=== PATIENT | female | born 1980 | race Caucasian/White ===

== ENCOUNTER → 2017-07-08 | Outpatient (CLI) | payer MEDICAID ==
--- NOTE | 2017-07-08 12:07 | Diagnostic Imaging Report ---
PROCEDURE: MRI left joint lower extremity without contrast. TECHNIQUE: Multiplanar, multisequence non contrast-enhanced MRI of the left lower extremity was accomplished. INDICATION: Knee pain. COMPARISON: There are no previous studies available for comparison. FINDINGS: By history, patient has had two prior procedures for repair of a meniscus tear. On the proton dense parasagittal images of this exam, there is abnormal signal along the inferior articular surface of the posterior horn of the medial meniscus. This does suggest a tear. The midportion of the meniscus is also thinned and I suspect that this portion of the meniscus has been torn and has degenerated. The injury to the medial meniscus has lead to moderate degenerative disease of the articular surface of both medial femoral condyle and medial proximal tibia. There is no evidence for a tear of the lateral meniscus. There is only mild degenerative disease of the articular surface of the lateral femoral condyle. The anterior and posterior cruciate ligaments, quadriceps and infrapatellar tendons, the collateral ligaments, the biceps femoris tendon, the iliotibial band and the medial and lateral retinaculum are intact. There is no abnormal signal arising from the osseous structures to suggest bone edema or fracture. There is a moderate joint effusion present. The T2 fat-saturated axial images do show that there is some increased signal extending along the musculature of the upper calf medially. This increased signal may be related to fluid perhaps from the recent rupture of a Rahman's cyst with extravasation of the cyst contents into the musculature. T2 fat saturated axial images also show that there is narrowing of the patellofemoral space laterally. There is no sign of chondromalacia patella however. IMPRESSION: 1. The midportion and the posterior horn of the medial meniscus are torn and the midportion of the meniscus has partially degenerated. The injury to the medial meniscus has lead to moderate degenerative disease involving the articular surface of the medial femoral condyle. 2. The lateral meniscus and the major ligaments and tendons are intact. 3. There is mild degenerative disease of the lateral femoral condyle and there is narrowing of the lateral aspect of the patellofemoral space. 4. There is no sign of an acute bony abnormality. 5. The abnormal signal along the musculature in the medial aspect of the upper calf may be secondary to extravasated fluid from a ruptured Rahman's cyst. There does seem to be mild edema/inflammation of the musculature in this area. Dictated by: Dictated on workstation # [id number]
== END ==
LOC: RAD 09:11
PROVIDERS: ATTEND Orthopaedic Surgery
DX: M23.232 Derangement of other medial meniscus due to old tear or injury, left knee (principal)
CPT/HCPCS: 73721

== ENCOUNTER → 2017-08-13 | Outpatient (CLI) | payer MEDICAID ==
[~2017-08-13] MED LIST: GADOBUTROL 15 MMOL/15 ML (GADAVIST) VIAL IV ONE
--- NOTE | 2017-08-13 15:34 | Diagnostic Imaging Report ---
PROCEDURE: MRI pelvis with and without contrast. TECHNIQUE: Multiplanar, multisequence MRI of the pelvis was performed with and without contrast. INDICATION: Abnormal radiographs. Evaluate for sacroiliitis and bone marrow edema. FINDINGS: The sacroiliac joints demonstrate normal alignment. There is overall, in the visualized portions of the lower lumbar spine and in the sacrum, low fat content in the marrow. This could relate to a hyperactive bone marrow or less likely hematologic disease. There is no focal suspicious mass. There is no significant bone marrow edema or enhancement around the joints to suggest sacroiliitis. No significant amount of joint fluid is seen. No suspicious focal mass is identified. No enhancing lesion is seen within the bone or surrounding soft tissues in the presacral region or visualized portions of the pituitary region. The sacrococcygeal alignment is satisfactory. No stress fracture is seen. IMPRESSION: 1. No evidence of sacroiliitis. 2. Diffuse low signal in the marrow within the sacrum and visualized lower lumbar spine could relate to prominent red marrow component or potentially related to a hematologic disorder. No focal suspicious marrow lesion is seen. Dictated by: Dictated on workstation # [id number]
== END ==
LOC: RAD 09:22
PROVIDERS: ATTEND Internal Medicine Rheumatology
DX: M89.9 Disorder of bone, unspecified (principal)
CPT/HCPCS: 72197

== ENCOUNTER → 2017-09-06 | Outpatient (CLI) | payer MEDICAID | LOC: RAD 09:30 | PROVIDERS: ATTEND Orthopaedic Surgery | DX: S83.242A Other tear of medial meniscus, current injury, left knee, initial encounter (principal); X58.XXXA Exposure to other specified factors, initial encounter; Y99.8 Other external cause status ==

== ENCOUNTER → 2017-09-10 | Outpatient (CLI) | payer MEDICAID ==
--- NOTE | 2017-09-10 12:06 | Diagnostic Imaging Report ---
PROCEDURE: MRI left joint lower extremity without contrast. TECHNIQUE: Multiplanar, multisequence non contrast-enhanced MRI of the left lower extremity was accomplished. INDICATION: Left knee injury. FINDINGS: There is a small suprapatellar effusion. There is a very small popliteal cyst measuring 8 x 3 mm in size. There is no significant marrow signal abnormality. The extensor mechanism is intact. The ACL and PCL appear intact. There is a tear involving the posterior horn of the medial meniscus and a radial tear in the body of the medial meniscus. The anterior horn is intact. The lateral meniscus demonstrates no definite tear. There is mild thinning of the cartilage in the medial compartment. The lateral and patellofemoral compartments cartilage is preserved. The lateral collateral ligament complex appears intact. The MCL appears slightly thickened probably secondary to old injury. IMPRESSION: Focal tears involving the posterior horn and the body of the medial meniscus. Dictated by: Dictated on workstation # [id number]
== END ==
LOC: RAD 09:39
PROVIDERS: ATTEND Orthopaedic Surgery
DX: S83.242A Other tear of medial meniscus, current injury, left knee, initial encounter (principal); X58.XXXA Exposure to other specified factors, initial encounter; Y99.8 Other external cause status
CPT/HCPCS: 73721

== ENCOUNTER 2017-10-31 14:03 | Outpatient (RCR) | payer MEDICAID ==
[2018-01-16] MEDS ORDERED: FLUT1DIS26 (10:49)
[2018-01-16] MEDS ORDERED: HYDR50TA76 (10:49)
[2018-01-16] MEDS ORDERED: TIZA4TAB3 (10:49)
[2018-01-16] MEDS ORDERED: HYDR200T46 (10:49)
[2018-01-16] MEDS ORDERED: BACL10TA (10:49)
[2018-01-16] MEDS ORDERED: METO-333 (10:49)
[2018-01-16] MEDS ORDERED: PROAIR (10:49)
[2018-01-16] MEDS ORDERED: OXYC-465 (10:49)
[2018-01-16] MEDS ORDERED: DICL100G27 (10:49)
[2018-01-16] MEDS ORDERED: CELE-63 (10:49)
== END 2018-01-29 | disposition home or self-care (01) ==
LOC: CARD 14:03
PROVIDERS: ATTEND Nurse Practitioner Family
DX: R00.0 Tachycardia, unspecified (principal)
CPT/HCPCS: 93225; 93226

== ENCOUNTER → 2017-12-24 | Outpatient (CLI) | payer MEDICAID | LOC: CARD 12:34 | PROVIDERS: ATTEND Internal Medicine Cardiovascular Disease | DX: R00.2 Palpitations (principal); R06.02 Shortness of breath; E66.8 Other obesity; M35.1 Other overlap syndromes; J30.2 Other seasonal allergic rhinitis | CPT/HCPCS: 93017; 93306 ==

== ENCOUNTER 2018-01-16 09:44 | Emergency (ER) | payer MEDICAID ==
[~2018-01-16] VITALS: Ht 172.7 cm; Wt 119.7 kg
--- OUTSIDE RECORDS SUMMARY | 2018-01-16 09:52 | XMS REPORT | Continuity of Care Document ---
Author Author [employer] Organization [facility] Address Unknown Phone Unavailable Care Team Providers Care Concrete Crusher Loader Operator Name Role Phone [employer] Unavailable Unavailable Problems Medications Allergies, Adverse Reactions, Alerts Immunizations Results Vital Signs Encounters Location Location Details Encounter Type Encounter Number Reason For Visit Attending Provider ADM Date DC Date Status Source O [id number] CIARA GREGORY 08/28/2011 08/28/2011 Active [facility] OUTPATIENT [id number] IDRIS COTE 01/01/20182017 Active [facility] O MARY GUERRERO 01/15/2018 01/15/2018 Active [facility] Procedures Plan of Care Social History Assessment and Plan Family History Advance Directives Functional Status
--- OUTSIDE RECORDS SUMMARY | 2018-01-16 09:52 | XMS REPORT | Clinical Summary ---
Author Author [facility] Organization [facility] Address Unknown Phone Unavailable Care Team Providers Care Obstetrical Anesthesiologist Name Role Phone RachaelNavarro VONDA PCP Source Comments Some departments are not documenting in the electronic medical record. If you do not see the information that you expected, contact Release of Information in the Health Information Management department at [phone] for further assistance in locating additional records.[facility] Allergies Active Allergy Reactions Severity Noted Date Comments Amoxicillin HIVES Medium 01/01/2018 Penicillins HIVES Medium 01/01/2018 Current Medications Prescription Sig. Disp. Refills Start End Date Status Date fluticasone/salmeterol Inhale 1 puff by mouth Active (ADVAIR DISKUS) 250/50 into the lungs every 12 mcg inhalation disk hours. albuterol (VENTOLIN HFA) Inhale 2 puffs by mouth Active 90 mcg/actuation inhaler into the lungs every 6 hours as needed for Wheezing or Shortness of Breath. Shake well before use. fluticasone (FLONASE) 50 Apply to each nostril as Active mcg/actuation nasal spray directed daily. Shake bottle gently before using. cetirizine (ZYRTEC) 10 mg Take 10 mg by mouth every Active tablet morning. omeprazole DR(+) Take 20 mg by mouth daily Active (PRILOSEC) 20 mg capsule before breakfast. HYDROXYZINE HCL PO Take 50 mg by mouth twice Active daily. baclofen (LIORESAL) 10 mg Take 10 mg by mouth three Active tablet times daily. metoprolol XL (TOPROL XL) Take 25 mg by mouth twice Active 25 mg extended release daily. tablet other medication HYDROXYCYCLINE 200 MG BID Active TIZANIDINE HCL Take by mouth three Active (TIZANIDINE PO) times daily. celecoxib (CELEBREX) 400 Take 400 mg by mouth Active mg capsule twice daily. oxycodone/acetaminophen Take by mouth every 6 Active (PERCOCET) 10/325 mg hours as needed. tablet diclofenac(+) (VOLTAREN) Apply 4 g topically to Active 1 % topical gel affected area daily. Hospital, Clinic, or Ordered Dose Route Frequency Start End Date Status Other Facility Date Administered Medication sodium 20 mg IX ONCE 01/15/20 01/16/20 Active hyaluronate(+)(EUFLEXXA) 18 18 intra-articular injection syringe 20 mgIndications: Post-traumatic osteoarthritis of left knee sodium 20 mg IX ONCE 01/01/20 01/02/20 Ended hyaluronate(+)(EUFLEXXA) 18 18 intra-articular injection syringe 20 mgIndications: Post-traumatic osteoarthritis of left knee sodium 20 mg IX ONCE 01/08/20 01/09/20 Ended hyaluronate(+)(EUFLEXXA) 18 18 intra-articular injection syringe 20 mgIndications: Post-traumatic osteoarthritis of left knee Active Problems Problem Noted Date Post-traumatic osteoarthritis of left knee 01/01/2018 Patellofemoral pain syndrome of left knee 01/01/2018 Encounters Date Type Specialty Care Team Description 01/15/2018 Procedure visit Orthopedic Surgery Jacky Duvall PA-C Post-traumatic osteoarthritis of left knee (Primary Dx) 01/08/2018 Procedure visit Orthopedic Surgery Jacky Duvall PA-C Post-traumatic osteoarthritis of left knee (Primary Dx) 01/01/2018 Hospital Radiology Jacky Duvall PA-C Encounter 01/01/2018 Office Visit Orthopedic Surgery Jacky Duvall PA-C Post-traumatic osteoarthritis of left knee (Primary Dx); Patellofemoral pain syndrome of left knee 12/30/2017 Orders Only Orthopedic Surgery Jacky Duvall PA-C Pain (Primary Dx) from Last 3 Months Family History Medical History Relation Name Comments Asthma Father Hypertension Father Stroke Father Asthma Mother Diabetes Mother Hypertension Mother Relation Name Status Comments Father Mother Social History Tobacco Use Types Packs/Day Years Used Date Never Smoker Smokeless Tobacco: Never Used Tobacco Cessation: Counseling Given: Yes Alcohol Use Drinks/Week oz/Week Comments No Sex Assigned at Date Recorded Not on file Last Filed Vital Signs Vital Sign Reading Time Taken Blood Pressure 102/72 01/15/2018 10:22 AM CONTROL CLERK Pulse 101 01/15/2018 10:22 AM CONTROL CLERK Temperature - - Respiratory Rate - - Oxygen Saturation - - Inhaled Oxygen - - Concentration Weight 124.7 kg (275 lb) 01/15/2018 10:22 AM CONTROL CLERK Height 172.7 cm (5' 8") 01/15/2018 10:22 AM CONTROL CLERK Body Mass Index 41.81 01/15/2018 10:22 AM CONTROL CLERK Plan of Treatment Health Maintenance Due Date Last Done Comments PHYSICAL (COMPREHENSIVE) 1987 EXAM PERTUSSIS VACCINE 1991 TETANUS VACCINE 1997 CERVICAL CANCER SCREENING 2010 INFLUENZA VACCINE 06/25/2017 Procedures Procedure Name Priority Date/Time Associated Diagnosis Comments AR ARTHROCENTESIS Routine 01/15/2018 Post-traumatic Results for this ASPIR&/INJ MAJOR JT/BURSA 10:20 AM CONTROL CLERK osteoarthritis of left procedure are in the W/O US knee results section. AR ARTHROCENTESIS Routine 01/08/2018 Post-traumatic Results for this ASPIR&/INJ MAJOR JT/BURSA 10:20 AM CONTROL CLERK osteoarthritis of left procedure are in the W/O US knee results section. AR ARTHROCENTESIS Routine 01/01/2018 Post-traumatic Results for this ASPIR&/INJ MAJOR JT/BURSA 8:00 AM CONTROL CLERK osteoarthritis of left procedure are in the W/O US knee results section. from Last 3 Months Results * KU AMB UKP ORTHO LARGE JOINT DRAIN/INJECT (01/15/2018 10:20 AM) Specimen Performing Laboratory IN CLINIC Narrative Jacky Duvall PA-C 01/15/2018 11:07 AM Large Joint Drain/Inject Location: knee L knee Consent: Consent obtained: verbal Consent given by: patient Risks discussed: bleeding, infection, pain and soft tissue reaction Discussed with patient the purpose of the treatment/procedure, other ways of treating my condition, including no treatment/ procedure and the risks and benefits of the alternatives. Patient has decided to proceed with treatment/procedure. [place] Protocol: Patient identity confirmed: Patient identify confirmed verbally with patient. Time out: Immediately prior to procedure a "time out" was called to verify the correct patient, procedure, equipment, passport support associate and site/side marked as required Procedures Details: Indications: pain and joint swelling Prep: alcohol and povidone-iodine Local anesthetic: ethyl chloride spray Needle size: 22 G Approach: anteromedial Medications administered: 20 mg sodium hyaluronate(+)(EUFLEXXA) 20 mg/2mL Patient tolerance: Patient tolerated the procedure well with no immediate complications. Pressure was applied, and hemostasis was accomplished. * KU AMB UKP ORTHO LARGE JOINT DRAIN/INJECT (01/08/2018 10:20 AM) Specimen Performing Laboratory IN CLINIC Narrative Jacky Duvall PA-C 01/08/2018 10:53 AM Large Joint Drain/Inject Location: knee L knee Consent: Consent obtained: verbal Consent given by: patient Risks discussed: bleeding, infection, pain and soft tissue reaction Discussed with patient the purpose of the treatment/procedure, other ways of treating my condition, including no treatment/ procedure and the risks and benefits of the alternatives. Patient has decided to proceed with treatment/procedure. [place] Protocol: Patient identity confirmed: Patient identify confirmed verbally with patient. Time out: Immediately prior to procedure a "time out" was called to verify the correct patient, procedure, equipment, passport support associate and site/side marked as required Procedures Details: Indications: pain and joint swelling Prep: alcohol and povidone-iodine Local anesthetic: ethyl chloride spray Needle size: 22 G Approach: anteromedial Medications administered: 20 mg sodium hyaluronate(+)(EUFLEXXA) 20 mg/2mL Patient tolerance: Patient tolerated the procedure well with no immediate complications. Pressure was applied, and hemostasis was accomplished. * KNEE COMP MIN 4 VIEWS BILAT (01/01/2018 8:31 AM) Specimen Performing Laboratory Bilateral KU RAD RESULTS Impressions Findings/Impression: Osseous structures are intact without evidence of acute fracture or dislocation. Joint spaces are preserved except for minimal joint space narrowing of the medial joint compartment of the left knee. Normal bone mineralization. No lytic or blastic osseous lesions. No significant joint effusion. Finalized by JULIETA CÁRDENAS on 01/01/2018 8:44 AM. Dictated by JULIETA CÁRDENAS on 01/01/2018 8:42 AM. Narrative KNEE COMP MIN 4 VIEWS BILAT Indication: Knee pain Comparison: None Technique: Bilateral PA, AP, lateral and merchant views Procedure Note Interface, Radiant Results - 01/01/2018 8:47 AM CONTROL CLERK KNEE COMP MIN 4 VIEWS BILAT Indication: Knee pain Comparison: None Technique: Bilateral PA, AP, lateral and merchant views IMPRESSION Findings/Impression: Osseous structures are intact without evidence of acute fracture or dislocation. Joint spaces are preserved except for minimal joint space narrowing of the medial joint compartment of the left knee. Normal bone mineralization. No lytic or blastic osseous lesions. No significant joint effusion. Finalized by JULIETA CÁRDENAS on 01/01/2018 8:44 AM. Dictated by JULIETA CÁRDENAS on 01/01/2018 8:42 AM. * KU AMB UKP ORTHO LARGE JOINT DRAIN/INJECT (01/01/2018 8:00 AM) Specimen Performing Laboratory IN CLINIC Chas Duvall PA-C 01/01/2018 12:42 PM Large Joint Drain/Inject Location: knee L knee Consent: Consent obtained: verbal Consent given by: patient Risks discussed: bleeding, infection, pain and soft tissue reaction Alternatives discussed: alternative treatment, delayed treatment and no treatment Discussed with patient the purpose of the treatment/procedure, other ways of treating my condition, including no treatment/ procedure and the risks and benefits of the alternatives. Patient has decided to proceed with treatment/procedure. [place] Protocol: Patient identity confirmed: Patient identify confirmed verbally with patient. Time out: Immediately prior to procedure a "time out" was called to verify the correct patient, procedure, equipment, passport support associate and site/side marked as required Procedures Details: Indications: pain and joint swelling Prep: alcohol and povidone-iodine Local anesthetic: ethyl chloride spray Needle size: 22 G Approach: anteromedial Medications administered: 20 mg sodium hyaluronate(+)(EUFLEXXA) 20 mg/2mL Patient tolerance: Patient tolerated the procedure well with no immediate complications. Pressure was applied, and hemostasis was accomplished. from Last 3 Months
--- OUTSIDE RECORDS SUMMARY | 2018-01-16 09:53 | XMS REPORT ---
Author MUSA Godfrey [facility] [employer] Address Unknown Phone Unavailable Care Team Providers Care Pediatric Physician Name Role Phone MUSA QUEEN CP Unavailable Allergies No Known Allergies Problems Problem Type Condition Code Onset Dates Condition Status Problem Mild intermittent asthma without complication J45.20 Active Assessment Cough R05 Active Problem Gastroesophageal reflux disease, esophagitis presence not specified K21.9 Active Medications No Known Medications Procedures Procedure Coding System Code Date CHEST X-RAY CPT-4 59701 Oct 09, 2016 Results Name Result Date Reference Range Unit Abnormality Flag Xray : Chest (IN HOUSE) Summary Purpose [employer] Submission
--- OUTSIDE RECORDS SUMMARY | 2018-01-16 09:53 | XMS REPORT ---
Author Author KRYSTYNA GERMAN Organization [employer] Address Unknown Phone Unavailable Care Team Providers Care Automotive Internet Sales Consultant Name Role Phone KRYSTYNA GERMAN Unavailable Allergies No Known Allergies Problems Problem Type Condition Code Onset Dates Condition Status Problem Mild intermittent asthma without complication J45.20 Active Problem Gastroesophageal reflux disease, esophagitis presence not specified K21.9 Active Medications No Known Medications Results No Known Results Summary Purpose [employer] Submission
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
--- OUTSIDE RECORDS SUMMARY | 2018-01-16 09:53 | XMS REPORT ---
Author Author KRYSTYNA BALL Organization [facility] Address [address] [place] [address] Care Team Providers Care Sales Research Analyst Name Role Phone KRYSTYNA BALL Unavailable PROBLEMS Type Condition ICD9-CM Code [id number] Code Onset Dates Condition Status SNOMED Code Problem Right foot strain, initial encounter S96.911A Active 732341818 Problem Difficulty sleeping G47.9 Active 467518251 Problem Mild intermittent asthma without complication J45.20 Active 634345229 Problem Anxiety F41.9 Active 84736574 Problem Gastroesophageal reflux disease, esophagitis presence not specified K21.9 Active 615258405 ALLERGIES Substance Reaction Event Type Date Status Penicillin V Potassium hives Drug Allergy Oct, Active Amoxicillin hives Drug Allergy Oct, Active SOCIAL HISTORY No smoking Hx information available PLAN OF CARE Activity Details Follow Up pending referral for second opinion Reason: VITAL SIGNS Height 68 in 2016-11-05 Weight 284 lbs 2016-11-05 Temperature 98.4 degrees Fahrenheit 2016-11-05 Heart Rate 80 bpm 2016-11-05 Respiratory Rate 16 2016-11-05 BMI 43.18 kg/m2 2016-11-05 Blood pressure systolic 120 mmHg 2016-11-05 Blood pressure diastolic 68 mmHg 2016-11-05 MEDICATIONS Medication Instructions Dosage Frequency Start Date End Date Duration Status Advair Diskus 250-50 MCG/DOSE Inhalation Twice a day 1 puff 12h Active Ventolin HFA 108 (90 Base) MCG/ACT Inhalation every 4 hrs 2 puffs as needed 4h Active HydrOXYzine HCl 50 MG Orally every 6 hrs 1 tablet as needed 6h Active ZyrTEC 10 MG Orally Once a day at HS 1 tablet as needed Active Advil 200 MG Orally every 6 hrs 1 tablet as needed 6h Active Claritin 10 MG Orally Once a day 1 tablet 24h Active Omeprazole 40 mg Orally Once a day 1 capsule 24h Sep, Active RESULTS No Results PROCEDURES Procedure Date Ordered Related Diagnosis Body Site Office Visit, Est Pt., Level 3 Nov 05, 2016 IMMUNIZATIONS No Known Immunizations
--- OUTSIDE RECORDS SUMMARY | 2018-01-16 09:53 | XMS REPORT | Encounter Summary ---
Author Author [facility] Organization [facility] Address Unknown Phone Unavailable Care Team Providers Care Global Program Director Name Role Phone Navarro Cano BOILERMAKER LOFTSMAN PCP Encounter Details Date Type Department Care Team Description 01/01/2018 Hospital [facility] Jacky Duvall PA-C Encounter Hospital Radiology [address] [facility] [address] [facility] [place] [address] OFFICE BLDG [phone] [address]LO[address] [place], [place] [id number] Social History Tobacco Use Types Packs/Day Years Used Date Never Smoker Smokeless Tobacco: Never Used Alcohol Use Drinks/Week oz/Week Comments No Sex Assigned at Date Recorded Not on file as of this encounter Medications at Time of Discharge Medication Sig. Disp. Refills Start Date End Date albuterol (VENTOLIN HFA) Inhale 2 puffs by mouth 90 mcg/actuation inhaler into the lungs every 6 hours as needed for Wheezing or Shortness of Breath. Shake well before use. baclofen (LIORESAL) 10 mg Take 10 mg by mouth three tablet times daily. celecoxib (CELEBREX) 400 Take 400 mg by mouth mg capsule twice daily. cetirizine (ZYRTEC) 10 mg Take 10 mg by mouth every tablet morning. diclofenac(+) (VOLTAREN) Apply 4 g topically to 1 % topical gel affected area daily. fluticasone (FLONASE) 50 Apply to each nostril as mcg/actuation nasal spray directed daily. Shake bottle gently before using. fluticasone/salmeterol Inhale 1 puff by mouth (ADVAIR DISKUS) 250/50 into the lungs every 12 mcg inhalation disk hours. HYDROXYZINE HCL PO Take 50 mg by mouth twice daily. metoprolol XL (TOPROL XL) Take 25 mg by mouth twice 25 mg extended release daily. tablet omeprazole DR(+) Take 20 mg by mouth daily (PRILOSEC) 20 mg capsule before breakfast. other medication HYDROXYCYCLINE 200 MG BID oxycodone/acetaminophen Take by mouth every 6 (PERCOCET) 10/325 mg hours as needed. tablet TIZANIDINE HCL Take by mouth three (TIZANIDINE PO) times daily. as of this encounter Plan of Treatment Not on fileas of this encounter Results * KNEE COMP MIN 4 VIEWS BILAT [...] Interface, Radiant Results - 01/01/2018 8:47 AM SIGN INSTALLER KNEE COMP MIN 4 VIEWS BILAT Indication: [...] by JULIETA CÁRDENAS on 01/01/2018 8:42 AM. in this encounter Visit Diagnoses Diagnosis Pain Generalized pain
--- OUTSIDE RECORDS SUMMARY | 2018-01-16 09:53 | XMS REPORT | Encounter Summary ---
Author Author [facility] Organization [facility] Address Unknown Phone Unavailable Care Team Providers Care Qa Automation Developer Name Role Phone Navarro Cano RV TECHNICIAN PCP Reason for Referral * Consult, Test & Treat Status Reason Specialty Diagnoses / Referred By Referred To Procedures Contact Contact New Request Specialty Physical Therapy / Diagnoses Mando Duvall [facility] Orthopedic Surgery Post-traumatic MELIS[facility] Required osteoarthritis [address] of left knee [address] [place], [place] [address] [place] [address] [place] knee Reason for Visit * Reason Comments Knee Pain bilateral knee pain Encounter Details Date Type Department Care Team Description 01/01/2018 Office Visit [facility] Jacky Duvall PA-C Post-traumatic Physicians - Orthopedics [address] osteoarthritis of left [address] [place] [address] [place] [address] knee (Primary Dx); [address] [phone] Patellofemoral pain [facility] [place] [address] Social History Tobacco Use Types Packs/Day Years Used Date Never Smoker Smokeless Tobacco: Never Used Tobacco Cessation: Counseling Given: Yes Alcohol Use Drinks/Week oz/Week Comments No Sex Assigned at Date Recorded Not on file as of this encounter Last Filed Vital Signs Vital Sign Reading Time Taken Blood Pressure 123/81 01/01/2018 8:21 AM ESTIMATING ENGINEER Pulse 80 01/01/2018 8:21 AM ESTIMATING ENGINEER Temperature - - Respiratory Rate - - Oxygen Saturation - - Inhaled Oxygen - - Concentration Weight 124.7 kg (275 lb) 01/01/2018 8:21 AM ESTIMATING ENGINEER Height 172.7 cm (5' 8") 01/01/2018 8:21 AM ESTIMATING ENGINEER Body Mass Index 41.81 01/01/2018 8:21 AM ESTIMATING ENGINEER in this encounter Progress Notes * Jacky Duvall PA-C - 01/01/2018 8:00 AM ESTIMATING ENGINEER Formatting of this note may be different from the original. Orthopedic Surgery Adult [facility] History of Present Illness: Moon Koenig is a 37 y.o. female who presents for a new patient evaluation for bilateral knee pain, left > right. The symptoms and characteristics are as follows: Location of pain: anteromedial, medial to patella Associated symptoms: grinding, popping, swelling, feels unstable, locking Character of pain: always achy, sharp at times Alleviating factors: none, transient relief after scopes Aggravating factors: walking, standing, knee bending Prior treatment: 5 surgeries, voltaren gel, celebrex 400mg, steroid injections ( September 2017, did not help), no visco injections, physical therapy 2 years ago , pain meds Duration, date of onset: August 2017 had knee swelling Injury: none Severity: 05/04, night pain Surgical history: Dr. Tompkins ([facility]) left knee scope "scrapped out arthritis" August 2016, Dr. Valencia ([facility]) scope January 2017, April 2017 scope, June 2017 scope, September 2017 scope. On her last four scopes, she is unsure what all was done. She feels as though each time she had a partial medial menisectomy. Patient does not smoke. She has three kids. She lives three hours from her. She does not currently work outside the house. She admits to multiple "health problems" in her life. Past History: Past Medical History: Diagnosis Date Asthma Bursitis Fibromyalgia Hypertension Palpitations Past Surgical History: Procedure Laterality Date HYSTERECTOMY 2002 HX CHOLECYSTECTOMY 2011 HX ARTHROSCOPIC SURGERY Left 09/27/2017 KNEE X5 KNEE SURGERY Left 09/27/2017 KNEE/ARTHROSCOPE ANKLE SURGERY Right Social History Substance Use Topics Smoking status: Never Smoker Smokeless tobacco: Never Used Alcohol use No Family History Problem Relation Age of Onset Diabetes Mother Hypertension Mother Asthma Mother Hypertension Father Asthma Father Stroke Father Allergies: Allergies Allergen Reactions Amoxicillin HIVES Pcn [Penicillins] HIVES Medications: Current Outpatient Prescriptions: albuterol (VENTOLIN HFA) 90 mcg/actuation inhaler, Inhale 2 puffs by mouth into the lungs every 6 hours as needed for Wheezing or Shortness of Breath. Shake well before use., Disp: , Rfl: baclofen (LIORESAL) 10 mg tablet, Take 10 mg by mouth three times daily., Disp: , Rfl: celecoxib (CELEBREX) 400 mg capsule, Take 400 mg by mouth twice daily., Disp: , Rfl: cetirizine (ZYRTEC) 10 mg tablet, Take 10 mg by mouth every morning., Disp : , Rfl: diclofenac(+) (VOLTAREN) 1 % topical gel, Apply 4 g topically to affected area daily., Disp: , Rfl: fluticasone (FLONASE) 50 mcg/actuation nasal spray, Apply to each nostril as directed daily. Shake bottle gently before using., Disp: , Rfl: fluticasone/salmeterol (ADVAIR DISKUS) 250/50 mcg inhalation disk, Inhale 1 puff by mouth into the lungs every 12 hours., Disp: , Rfl: HYDROXYZINE HCL PO, Take 50 mg by mouth twice daily., Disp: , Rfl: metoprolol XL (TOPROL XL) 25 mg extended release tablet, Take 25 mg by mouth twice daily., Disp: , Rfl: omeprazole DR(+) (PRILOSEC) 20 mg capsule, Take 20 mg by mouth daily before breakfast., Disp: , Rfl: other medication, HYDROXYCYCLINE 200 MG BID, Disp: , Rfl: oxycodone/acetaminophen (PERCOCET) 10/325 mg tablet, Take by mouth every 6 hours as needed., Disp: , Rfl: TIZANIDINE HCL (TIZANIDINE PO), Take by mouth three times daily., Disp: , Rfl: Review of Systems: Review of Systems HENT: Positive for congestion. Cardiovascular: Positive for palpitations and leg swelling. Musculoskeletal: Positive for arthralgias, back pain and joint swelling. All other systems reviewed and are negative. Physical Exam: BP 123/81 | Pulse 80 | Ht 172.7 cm (68") | Wt 124.7 kg (275 lb) | BMI 41.81 kg/m General/Constitutional: No apparent distress, well-nourished and well developed , unaccompanied Head: Normocephalic, atraumatic Eyes: Pupils equal, round with synchronous movement Respiratory: Clear and non-labored breathing Vascular: No edema, swelling or tenderness, calves soft and non-tender Integumentary: Normal with no impressive skin lesions present Psych: Normal mood and affect, oriented to person, place and time Musculoskeletal (left knee): No erythema, ecchymosis, rashes, or masses noted. No effusion. Mild knee swelling. Portal hole surgical scars. Moderate tenderness to palpation medial patellar soft tissue. Mild tenderness global knee soft tissue. AROM 0 to 120 degrees. There is pain with terminal flexion. Knee is stable to V/V stress. Negative anterior and posterior drawer. Positive patellar glide. Pain with squatting. 4+/5 left hip abduction strength. 5/5 quad strength. Negative FADIR. Normal left hip ROM. Normal gait. No ambulatory aid. Sensory and motor intact to LLE. DP pulse present. Imaging/Laboratory: IMPRESSION (radiologist) Osseous structures are intact without evidence of acute fracture or dislocation. Joint spaces are preserved except for minimal joint space narrowing of the medial joint compartment of the left knee. Normal bone mineralization. No lytic or blastic osseous lesions. No significant joint effusion. Second Interpretation: No evidence of fracture or significant effusion. Mild medial compartment DJD. Assessment: 1. Post-traumatic osteoarthritis of left knee 2. Patellofemoral pain syndrome of left knee Plan: - Visco injections. No prior auth needed by her insurance company. See procedure note. - Re-start formal PT. Script made available. 1/week for 4-6 weeks, home exercise program - Extensive discussion about weight management - F/U one week Patient presents with signs and symptoms consistent with medial compartment left knee DJD and patellofemoral syndrome. Her right knee was not a complaint today. Would like to trial hyaluronic injections today and patient agreed. She will also begin formal PT with an emphasis on a HEP. We discussed weight loss as an important component on reducing her pain symptoms. She has had trouble with weight gain ever since her hysterectomy in 2002. I advised her to get back with her PCP to come up with a weight loss plan. Patient will f/u next week for the second injection in the Euflexxa series. in this encounter Procedure Notes * Jacky Duvall PA-C - 01/01/2018 8:00 AM ESTIMATING ENGINEER Associated Order(s): KU AMB UKP ORTHO LARGE JOINT DRAIN/INJECT Post-Procedure Diagnose(s): Post-traumatic osteoarthritis of left knee Large Joint Drain/Inject Location: knee L knee [...] alternatives. Patient has decided to proceed with treatment/ procedure. [place] Protocol: Patient identity confirmed: Patient identify confirmed verbally with patient. Time out: Immediately prior to procedure a "time out" was called to verify the correct patient, procedure, equipment, technical support coordinator and site/side marked as required Procedures Details: Indications: pain and joint swelling Prep: alcohol and povidone-iodine Local anesthetic: ethyl chloride spray Needle size: 22 G Approach: anteromedial Medications administered: 20 mg sodium hyaluronate(+)(EUFLEXXA) 20 mg/2mL Patient tolerance: Patient tolerated the procedure well with no immediate complications. Pressure was applied, and hemostasis was accomplished. in this encounter Plan of Treatment Name Priority Associated Diagnoses Order Schedule AMB REFERRAL TO PHYSICAL THERAPY Routine Post-traumatic Ordered: 2017 osteoarthritis of left knee Patellofemoral pain syndrome of left knee as of this encounter Procedures Procedure Name Priority Date/Time Associated Diagnosis Comments [place] ARTHROCENTESIS Routine 01/01/2018 Post-traumatic Results for this ASPIR&/INJ MAJOR JT/BURSA 8:00 AM ESTIMATING ENGINEER osteoarthritis of left procedure are in the W/O US knee results section. in this encounter Results * KU AMB UKP ORTHO LARGE JOINT DRAIN/INJECT (01/01/2018 8:00 AM) Specimen Performing Laboratory IN CLINIC Narrative Jacky Duvall PA-C 01/01/2018 12:42 PM Large Joint [...] Patient has decided to proceed with treatment/procedure. [place] Protocol: Patient identity confirmed: Patient identify confirmed verbally with patient. Time out: Immediately prior to procedure a "time out" was called to verify the correct patient, procedure, equipment, technical support coordinator and site/side marked as required Procedures Details: Indications: pain and joint swelling Prep: alcohol and povidone-iodine Local anesthetic: ethyl chloride spray Needle size: 22 G Approach: anteromedial Medications administered: 20 mg sodium hyaluronate(+)(EUFLEXXA) 20 mg/2mL Patient tolerance: Patient tolerated the procedure well with no immediate complications. Pressure was applied, and hemostasis was accomplished. in this encounter Visit Diagnoses Diagnosis Post-traumatic osteoarthritis of left knee - Primary Secondary localized osteoarthrosis, lower leg Patellofemoral pain syndrome of left knee Administered Medications Medication Order MAR Action Action Date Dose Rate Site sodium hyaluronate(+)(EUFLEXXA) Given 01/01/2018 20 mg intra-articular injection syringe 20 mg 12:40 ESTIMATING ENGINEER 20 mg, Intra-articular, ONCE PRN, 1 dose, Starting Sat01/01/18 at 1240, Until Sat01/01/18 at 1240 in this encounter
--- OUTSIDE RECORDS SUMMARY | 2018-01-16 09:53 | XMS REPORT | Encounter Summary ---
Author Author [facility] Organization [facility] Address Unknown Phone Unavailable Care Team Providers Care Fine Grader Name Role Phone Navarro Cano WEDDING CONSULTANT PCP Reason for Visit * Reason Comments Knee Pain left knee inj Encounter Details Date Type Department Care Team Description 01/15/2018 Procedure visit [facility] Jacky Duvall PA-C Post-traumatic Physicians - Orthopedics [address] [facility] osteoarthritis of left [address]ST AND [address] [place] [address] knee (Primary Dx) [address] [place], [place] [address] [phone] [facility] [place] [address] Social History Tobacco Use Types Packs/Day Years Used Date Never Smoker Smokeless Tobacco: Never Used Tobacco Cessation: Counseling Given: Yes Alcohol Use Drinks/Week oz/Week Comments No Sex Assigned at Date Recorded Not on file as of this encounter Last Filed Vital Signs Vital Sign Reading Time Taken Blood Pressure 102/72 01/15/2018 10:22 AM CUSTOMER SERVICE ASSISTANT Pulse 101 01/15/2018 10:22 AM CUSTOMER SERVICE ASSISTANT Temperature - - Respiratory Rate - - Oxygen Saturation - - Inhaled Oxygen - - Concentration Weight 124.7 kg (275 lb) 01/15/2018 10:22 AM CUSTOMER SERVICE ASSISTANT Height 172.7 cm (5' 8") 01/15/2018 10:22 AM CUSTOMER SERVICE ASSISTANT Body Mass Index 41.81 01/15/2018 10:22 AM CUSTOMER SERVICE ASSISTANT in this encounter Procedure Notes * Jacky Duvall PA-C - 01/15/2018 10:20 AM CUSTOMER SERVICE ASSISTANT Associated Order(s): KU AMB UKP ORTHO LARGE [...] has decided to proceed with treatment/ procedure. [place] Protocol: Patient identity confirmed: Patient identify confirmed verbally with patient. Time out: Immediately prior to procedure a "time out" was called to verify the correct patient, procedure, equipment, community support associate and site/side marked as required Procedures Details: Indications: pain and joint swelling Prep: alcohol and povidone-iodine Local anesthetic: ethyl chloride spray Needle size: 22 G Approach: anteromedial Medications administered: 20 mg sodium hyaluronate(+)(EUFLEXXA) 20 mg/2mL Patient tolerance: Patient tolerated the procedure well with no immediate complications. Pressure was applied, and hemostasis was accomplished. in this encounter Plan of Treatment Not on fileas of this encounter Procedures Procedure Name Priority Date/Time Associated Diagnosis Comments [place] ARTHROCENTESIS Routine 01/15/2018 Post-traumatic Results for this ASPIR&/INJ MAJOR JT/BURSA 10:20 AM CUSTOMER SERVICE ASSISTANT osteoarthritis of left procedure are in the [...] Patient has decided to proceed with treatment/procedure. [place] Protocol: Patient identity confirmed: Patient identify confirmed verbally with patient. Time out: Immediately prior to procedure a "time out" was called to verify the correct patient, procedure, equipment, community support associate and site/side marked as required [...] - Primary Secondary localized osteoarthrosis, lower leg Administered Medications Medication Order MAR Action Action Date Dose Rate Site sodium hyaluronate(+)(EUFLEXXA) Given 01/15/2018 20 mg intra-articular injection syringe 20 mg 11:06 CUSTOMER SERVICE ASSISTANT 20 mg, Intra-articular, ONCE PRN, 1 dose, Starting Sat01/15/18 at 1106, Until Sat01/15/18 at 1106 in this encounter
--- OUTSIDE RECORDS SUMMARY | 2018-01-16 09:53 | XMS REPORT ---
Author Author KRYSTYNA BALL Organization [facility] Address [address] [place] [address] Care Team Providers Care Betting Agency Manager Name Role Phone KRYSTYNA BALL Unavailable PROBLEMS Type Condition ICD9-CM Code [id number] Code Onset Dates Condition Status SNOMED Code Problem Right foot strain, initial encounter S96.911A Active 738892786 Problem Difficulty sleeping G47.9 Active 919204071 Problem Mild intermittent asthma without complication J45.20 Active 222754387 Problem Anxiety F41.9 Active 92363338 Problem Gastroesophageal reflux disease, esophagitis presence not specified K21.9 Active 364225573 ALLERGIES Unknown Allergies SOCIAL HISTORY No smoking Hx information available PLAN OF CARE VITAL SIGNS MEDICATIONS Unknown Medications RESULTS No Results PROCEDURES Procedure Date Ordered Related Diagnosis Body Site PULMONARY FUNCTION TEST (IN-HOUSE) 2016-11-22 Normal RESPIRATORY FLOW VOLUME LOOP Nov 22, 2016 SPIROMETRY Nov 22, 2016 NEB/MDI DEMO Nov 22, 2016 IMMUNIZATIONS No Known Immunizations
--- OUTSIDE RECORDS SUMMARY | 2018-01-16 09:53 | XMS REPORT | Encounter Summary ---
Author Author [facility] Organization [facility] Address Unknown Phone Unavailable Care Team Providers Care Pan Helper Name Role Phone Self, Referral PCP Unavailable Encounter Details Date Type Department Care Team Description 12/30/2017 Orders Only [facility] Jacky Duvall PA-C Pain (Primary Dx) Physicians - Orthopedics [address] [place] [address] [phone] [place] [address] Social History Tobacco Use Types Packs/Day Years Used Date Never Assessed Sex Assigned at Date Recorded Not on file as of this encounter Plan of Treatment [...] Interface, Radiant Results - 01/01/2018 8:47 AM CONCRETE BLOCK MASON KNEE COMP MIN 4 VIEWS BILAT Indication: [...] in this encounter Visit Diagnoses Diagnosis Pain - Primary Generalized pain
--- OUTSIDE RECORDS SUMMARY | 2018-01-16 09:53 | XMS REPORT ---
Author Author ABIMAEL ROJO [employer] Address Unknown Phone Unavailable Care Team Providers Care Radial Drill Press Operator Name Role Phone ABIMAEL ROJO Unavailable Allergies, Adverse Reactions, Alerts Substance Reaction Event Type Penicillin V Potassium hives Drug Allergy Amoxicillin hives Drug Allergy Problems Problem Type Condition Code Onset Dates Condition Status Assessment Flank pain 789.09 Active Assessment Cough 786.2 Active Problem VARICELLA DX V05.4 Active Problem MMR DX V06.4 Active Problem Screening examination for pulmonary tuberculosis V74.1 Active Problem Injury, other and unspecified, shoulder and upper arm 959.2 Active Problem Need for prophylactic vaccination and inoculation, Influenza V04.81 Active Problem STATE HEP A (ADULT) DX V05.3 Active Problem DTAP TEST V06.1 Active Medications Medication Code System Code Instructions Start Date End Date Status Dosage Doxycycline Hyclate [facility] [address]-24 100 MG Orally every 12 hrs Aug 16, 2015 Aug 26, 2015 [address]FA [facility] [address]-87 108 (90 Base) MCG/ACT Inhalation every 4 hrs Aug 16, 2015 2 puffs as needed Advair Diskus [facility] [address]-48 250-50 MCG/DOSE Inhalation Twice a day Aug 16, [address] [facility] [address]-90 50 MCG/ACT Nasally 2 times a day Aug 16, 2015 1 spray in each nostril Claritin [facility] [address]-66 10 MG Orally Once a day [address] [facility] [address]-82 10 MG Orally Once a day at HS 1 tablet as needed Procedures Procedure Coding System Code Date Office Visit, Est Pt., Level 3 CPT-4 36240 Aug 24, 2015 X-RAY EXAM OF ABDOMEN CPT-4 24263 Aug 24, 2015 Vital Signs Date/Time: Aug 24, 2015 Temperature 98.4 F Weight 283.4 lbs Height 68 in BMI 43.09 Index Blood Pressure Diastolic 80 mmHg Blood Pressure Systolic 128 mmHg Cardiac Monitoring Heart Rate 90 bpm Results Name Result Date Reference Range Unit Abnormality Flag Xray : Chest Summary Purpose [employer] Submission
--- OUTSIDE RECORDS SUMMARY | 2018-01-16 09:53 | XMS REPORT | Encounter Summary ---
Author Author [facility] Organization [facility] Address Unknown Phone Unavailable Care Team Providers Care Huc Name Role Phone Navarro Cano EYEWEAR CONSULTANT PCP Reason for Visit * Reason Comments Knee Pain left knee inj Encounter Details Date Type Department Care Team Description 01/08/2018 Procedure visit [facility] Jacky Duvall PA-C Post-traumatic Physicians - Orthopedics [address] [facility] osteoarthritis of left [address] [place] [address] [place] [address] knee (Primary Dx) [address] [place], [place] [address]VD [phone] ORTHOPEDICS [facility] [place] [address] Social History Tobacco Use Types Packs/Day Years Used Date Never Smoker Smokeless Tobacco: Never Used Tobacco Cessation: Counseling Given: Yes Alcohol Use Drinks/Week oz/Week Comments No Sex Assigned at Date Recorded Not on file as of this encounter Last Filed Vital Signs Vital Sign Reading Time Taken Blood Pressure 124/80 01/08/2018 10:30 AM ASSISTANT ANALYST Pulse 70 01/08/2018 10:30 AM ASSISTANT ANALYST Temperature - - Respiratory Rate - - Oxygen Saturation - - Inhaled Oxygen - - Concentration Weight 124.7 kg (275 lb) 01/08/2018 10:30 AM ASSISTANT ANALYST Height 172.7 cm (5' 8") 01/08/2018 10:30 AM ASSISTANT ANALYST Body Mass Index 41.81 01/08/2018 10:30 AM ASSISTANT ANALYST in this encounter Procedure Notes * Jacky Duvall PA-C - 01/08/2018 10:20 AM ASSISTANT ANALYST Associated Order(s): [facility] ORTHO LARGE [...] has decided to proceed with treatment/ procedure. [place] Protocol: Patient identity confirmed: Patient identify confirmed verbally with patient. Time out: Immediately prior to procedure a "time out" was called to verify the correct patient, procedure, equipment, is support analyst and site/side marked as required Procedures Details: [...] Procedure Name Priority Date/Time Associated Diagnosis Comments ME ARTHROCENTESIS Routine 01/08/2018 Post-traumatic Results for this ASPIR&/INJ MAJOR JT/BURSA 10:20 AM ASSISTANT ANALYST osteoarthritis of left procedure are in the [...] Patient has decided to proceed with treatment/procedure. [place] Protocol: Patient identity confirmed: Patient identify confirmed verbally with patient. Time out: Immediately prior to procedure a "time out" was called to verify the correct patient, procedure, equipment, is support analyst and site/side marked as required Procedures Details: [...] Date Dose Rate Site sodium hyaluronate(+)(EUFLEXXA) Given 01/08/2018 20 mg intra-articular injection syringe 20 mg 10:53 ASSISTANT ANALYST 20 mg, Intra-articular, ONCE PRN, 1 dose, Starting Sat01/08/18 at 1053, Until Sat01/08/18 at 1053 in this encounter
--- OUTSIDE RECORDS SUMMARY | 2018-01-16 09:53 | XMS REPORT ---
Author Author KRYSTYNA GERMAN Organization [employer] Address Unknown Phone Unavailable Care Team Providers Care Water Manager Name Role Phone KRYSTYNA GERMAN CP Unavailable Allergies No Known Allergies Problems Problem Type Condition Code Onset Dates Condition Status Problem Mild intermittent asthma without complication J45.20 Active Assessment History of lupus Z87.39 Active Problem Gastroesophageal reflux disease, esophagitis presence not specified K21.9 Active Medications No Known Medications Procedures Procedure Coding System Code Date VENIPUNCT, ROUTINE* CPT-4 96488 Oct 16, 2016 LAB NOT BILLED BY [facility] CPT-4 NOBLL Oct 16, 2016 Results Name Result Date Reference Range Unit Abnormality Flag ESR/SED RATE ----Sedimentation Rate-Chandlerren 16 [id number] 0-32 mm/hr CRP ----C-Reactive Protein, Quant 8.0 [id number] 0.0-4.9 mg/L H ROUTINE VENIPUNCTURE ISRRAEL ANALYZER ----ISRRAEL Direct Negative [id number] Negative Summary Purpose [employer] Submission
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
--- OUTSIDE RECORDS SUMMARY | 2018-01-16 09:54 | XMS REPORT ---
Author Author KRYSTYNA BALL Organization [facility] Address [address] [place] [address] Care Team Providers Care Physical Therapy Attendant Name Role Phone KRYSTYNA BALL Unavailable PROBLEMS Type Condition ICD9-CM Code PMX67-HG Code Onset Dates Condition Status SNOMED Code Problem Right foot strain, initial encounter S96.911A Active 978497647 Problem Anxiety F41.9 Active 30609230 Problem Mild intermittent asthma without complication J45.20 Active 002546710 Problem Difficulty sleeping G47.9 Active 094708252 Problem Gastroesophageal reflux disease, esophagitis presence not specified K21.9 Active 011431274 ALLERGIES Substance Reaction Event Type Date Status Penicillin V Potassium hives Drug Allergy Oct, Active Amoxicillin hives Drug Allergy Oct, Active SOCIAL HISTORY No smoking Hx information available PLAN OF CARE Activity Details Follow Up prn Reason:Keep ortho appt with Rodrick show VITAL SIGNS Height 68 in 2016-11-23 Weight 284.6 lbs 2016-11-23 Temperature 98.4 degrees Fahrenheit 2016-11-23 Heart Rate 78 bpm 2016-11-23 Respiratory Rate 16 2016-11-23 BMI 43.27 kg/m2 2016-11-23 Blood pressure systolic 122 mmHg 2016-11-23 Blood pressure diastolic 70 mmHg 2016-11-23 MEDICATIONS Medication Instructions Dosage Frequency Start Date End Date Duration Status Advair Diskus 250-50 MCG/DOSE Inhalation Twice a day 1 puff 12h Active ZyrTEC 10 MG Orally Once a day at HS 1 tablet as needed Active Ibuprofen 800 MG Orally Three times a day as needed for pain 1 tablet Oct, Dec, 30 day(s) Active Omeprazole 40 mg Orally Once a day 1 capsule 24h Sep, Active Hydrocodone-Acetaminophen 5-325 MG Orally every 6 hrs as needed 1 tablet as needed Oct, Nov, 14 days Active Baclofen 10 mg Orally every 8 hrs as needed for musle spasms 1 tablet with food or milk Oct, Oct, 0 days Active Claritin 10 MG Orally Once a day 1 tablet 24h Active Ventolin HFA 108 (90 Base) MCG/ACT Inhalation every 4 hrs 2 puffs as needed 4h Active HydrOXYzine HCl 50 MG Orally every 6 hrs 1 tablet as needed 6h Active Advil 200 MG Orally every 6 hrs 1 tablet as needed 6h Active RESULTS No Results PROCEDURES Procedure Date Ordered Related Diagnosis Body Site Office Visit, Est Pt., Level 3 Nov 23, 2016 IMMUNIZATIONS No Known Immunizations
--- OUTSIDE RECORDS SUMMARY | 2018-01-16 09:54 | XMS REPORT ---
Author MUSA Godfrey [facility] [employer] Address Unknown Phone Unavailable Care Team Providers Care Shank Tapper Name Role Phone MUSA QUEEN CP Unavailable Allergies No Known Allergies Problems Problem Type Condition Code Onset Dates Condition Status Assessment Encounter for immunization Z23 Active Problem VARICELLA DX V05.4 Active Problem MMR DX V06.4 Active Problem Screening examination for pulmonary tuberculosis V74.1 Active Problem Injury, other and unspecified, shoulder and upper arm 959.2 Active Problem Need for prophylactic vaccination and inoculation, Influenza V04.81 Active Problem STATE HEP A (ADULT) DX V05.3 Active Problem DTAP TEST V06.1 Active Medications No Known Medications Procedures Procedure Coding System Code Date SINGLE IMMUNIZATION ADMIN CPT-4 56760 Sep 26, 2015 FLUARIX QUAD (3 & UP)-GSK-2014 CPT-4 76333 Sep 26, 2015 Results No Known Results Immunizations Vaccine Administration Date FLUARIX QUAD (3 & UP)-GSK-2014Sep 26, 2015 Summary Purpose [employer]ClinicalWorks Submission
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
--- OUTSIDE RECORDS SUMMARY | 2018-01-16 09:54 | XMS REPORT | CCD ---
Author Author MANJULA FIORE Organization Unknown Address [address] [facility] [address] [place], [place] [address] Care Team Providers Care Emergency Operator Name Role Phone JOSE MIRELES, CORINNA Roger Attphys Vital Signs Vital Sign Value Unit Date/Time Recent/Initial? Weight Measured 272 lbs 04/03/2016 08:20 Initial VS Height 68 in 04/03/2016 08:20 Initial VS BMI (Body Mass Index) 41.36 kg/m^2 04/03/2016 08:20 Initial VS BSA (Body Surface Area) 2.43 m^2 04/03/2016 08:20 Initial VS Heart Rate 87 bpm 04/05/2016 09:27 Initial VS O2 % BldC Oximetry 92 % 04/05/2016 09:27 Initial VS BP Systolic 131 mmHg 04/05/2016 09:28 Initial VS BP Diastolic 70 mmHg 04/05/2016 09:28 Initial VS Respiratory Rate 14 bpm 04/05/2016 09:28 Initial VS BP Systolic 96 mmHg 04/05/2016 10:18 Most Recent VS BP Diastolic 63 mmHg 04/05/2016 10:18 Most Recent VS Respiratory Rate 17 bpm 04/05/2016 10:18 Most Recent VS Heart Rate 79 bpm 04/05/2016 10:18 Most Recent VS O2 % BldC Oximetry 98 % 04/05/2016 10:18 Most Recent VS Allergies Allergy Code Allergy Type Reaction Status PCN (penicillin) 0 Drug allergy Active AMOXICILLIN 723 Drug allergy Active AMPICILLIN 728085 Drug allergy Active Procedures Procedure Code Procedure Type Date Arthroscopy, knee, surgical; debridement/shaving of articular cartilage 71540 CPT 04/05/2016 History of Immunizations Unknown or Not Available. Problems Unknown or Not Available. Results Unknown or Not Available. Active Medications No Active Medications Medications Administered During Visit Unknown or Not Available. 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 If you have left the hospital and have any questions, please contact your primary care physician. Chief Complaint and Reason For Visit Chief Complaint Date of Onset ORT KNEE SCOPE LEFT Function Status Unknown or Not Available. Plan of Care Unknown or Not Available. Referral/Transition of Care Unknown or Not Available.
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
[2018-01-16] MEDS ORDERED: PROAIR (10:49)
[2018-01-16] MEDS ORDERED: HYDR50TA76 (10:49)
[2018-01-16] MEDS ORDERED: CELE-63 (10:49)
[2018-01-16] MEDS ORDERED: HYDR200T46 (10:49)
[2018-01-16] MEDS ORDERED: OXYC-465 (10:49)
[2018-01-16] MEDS ORDERED: BACL10TA (10:49)
[2018-01-16] MEDS ORDERED: METO-333 (10:49)
[2018-01-16] MEDS ORDERED: TIZA4TAB3 (10:49)
[2018-01-16] MEDS ORDERED: DICL100G27 (10:49)
[2018-01-16] MEDS ORDERED: FLUT1DIS26 (10:49)
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
[2018-01-16] MEDS ORDERED: ORPHENADRINE 60 MG/2 ML (NORFLEX) AMP IM ONE (11:45)
[2018-01-16] MEDS ORDERED: KETOROLAC 60 MG/2 ML VIAL IM ONE (11:45)
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
[2018-01-16 12:47] VITALS: BP 129/85
== END 2018-01-16 12:47 | disposition home or self-care (01) ==
LOC: EDUNIT# 09:44 → ER 09:46
DX: S83.92XA Sprain of unspecified site of left knee, initial encounter (principal); S39.012A Strain of muscle, fascia and tendon of lower back, initial encounter; R40.2142 Coma scale, eyes open, spontaneous, at arrival to emergency department; R40.2252 Coma scale, best verbal response, oriented, at arrival to emergency department; R40.2362 Coma scale, best motor response, obeys commands, at arrival to emergency department; J45.909 Unspecified asthma, uncomplicated; I10 Essential (primary) hypertension; Z88.0 Allergy status to penicillin; Z88.1 Allergy status to other antibiotic agents; V47.5XXA Car driver injured in collision with fixed or stationary object in traffic accident, initial encounter
CPT/HCPCS: 70450; 72125; 72128; 73562

== ENCOUNTER → 2018-08-05 | Day surgery (SDC) | payer MEDICAID ==
[~2018-08-05] VITALS: Ht 172.7 cm; Wt 119.7 kg
[~2018-08-05] MED LIST changes: +BACL10TA; +CELE-63; +DICL100G27; +FLUT1DIS26; -GADOBUTROL 15 MMOL/15 ML (GADAVIST) VIAL IV ONE; +HYDR200T46; +HYDR50TA76; +LIDOCAINE 1% INJ 20 ML 20 ML VIAL ONE; +METO-333; +OXYC-465; +PROAIR; +TIZA4TAB3
[2018-08-05 08:27] VITALS: BP 119/50
--- OUTSIDE RECORDS SUMMARY | 2018-08-05 08:38 | XMS REPORT | Clinical Summary ---
Author Author [facility] Organization [facility] Address Unknown Phone Unavailable Care Team Providers Care [place] Cleaner Name Role Phone LayneNavarro [place] REGULATOR PIN INSERTER PCP Source Comments Some departments are not documenting in the electronic medical record. If you do not see the information that you expected, contact Release of Information in the Health Information Management department at [phone] for further assistance in locating additional records.[facility] Allergies Active Allergy Reactions Severity Noted Date [...] capsule twice daily. oxycodone/acetaminophen Take by mouth twice Active (PERCOCET) 10/325 mg daily. tablet diclofenac(+) (VOLTAREN) Apply 4 g topically to Active 1 % topical gel affected area daily. Active Problems Problem Noted Date Post-traumatic osteoarthritis of left knee 01/01/2018 Patellofemoral pain syndrome of left knee 01/01/2018 Encounters Date Type Specialty Care Team Description 07/21/2018 Office Visit Sports Medicine Kaz Costello MD Primary osteoarthritis of left knee (Primary Dx); Connective tissue disease (HCC) 06/30/2018 Orders Only Sports Medicine Jacky Duvall PA-C Left knee pain, unspecified chronicity (Primary Dx); H/O arthroscopy of knee 06/30/2018 Telephone Sports Medicine Jacky Duvall PA-C Results 06/25/2018 Hospital Radiology Jacky Duvall PA-C Encounter 06/16/2018 Hospital Radiology Jacky Duvall PA-C Encounter 06/16/2018 Office Visit Sports Medicine Jacky Duvall PA-C Chronic pain of left knee (Primary Dx); Other tear of lateral meniscus of left knee as current injury, 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 06/16/2018 Procedure Pass Radiology from Last 3 Months Family History Medical [...] Vital Sign Reading Time Taken Blood Pressure 123/67 07/21/2018 9:00 AM CDT Pulse 73 07/21/2018 9:00 AM CDT Temperature - - Respiratory Rate 15 07/21/2018 9:00 AM CDT Oxygen Saturation 98% 07/21/2018 9:00 AM CDT Inhaled Oxygen - - Concentration Weight 117.9 kg (260 lb) 07/21/2018 9:00 AM CDT Height 172.7 cm (5' 8") 07/21/2018 9:00 AM CDT Body Mass Index 39.53 07/21/2018 9:00 AM CDT Plan of Treatment Health Maintenance Due Date Last Done Comments PHYSICAL (COMPREHENSIVE) 1987 EXAM PERTUSSIS VACCINE 1991 HIV SCREENING 1995 TETANUS VACCINE 1997 CERVICAL CANCER SCREENING 2010 INFLUENZA VACCINE 08/25/2018 Results * MRI LOWER EXT JNT WO CONT LEFT (06/25/2018 1:22 PM) Impressions Performed At 1.Diminution of the body medial meniscus with truncation of the free edge. [facility] This is suspect for sequelae to previous partial medial meniscectomy. Recommend correlating with previous intervention history. In the absence of previous partial medial meniscectomy then this is consistent with sequelae to previous displaced tear of the body medial meniscus. There is no visible loose meniscal fragment within the joint space. 2.High-grade chondrosis of the central weightbearing surfaces of the medial femoral condyle and medial tibial plateau with areas of denuded articular cartilage as noted. 3.1 cm long by 5 mm wide focus of likely basilar delamination of the articular cartilage along the posterior lateral nonweightbearing surface lateral femoral condyle. Greater than 50% thinning of the articular cartilage posterior nonweightbearing surface lateral femoral condyle. 4.Grade III chondromalacia of the patella. Full-thickness fissure in the articular cartilage overlying the median ridge of the patella. Greater than 50 % thinning of the articular cartilage overlying the inferior portion of the lateral trochlear groove. Slight lateral subluxation of patella. 5.Nqhv-eh-klejyhpt proximal patella tendinosis. Mild distal patella tendinosis. Vytm-wt-qmtcbqwl distal semimembranosus tendinosis. Finalized by Richy Alcala M.D. on 06/25/2018 1:34 PM. Dictated by Richy Alcala M.D. on 06/25/2018 1:14 PM. Narrative Performed At MRI left knee without contrast. [facility] HISTORY: Left knee pain. Rule out lateral meniscal tear. TECHNIQUE: Coronal axial sagittal and oblique coronal fat-suppressed proton-density images were part left knee. Sagittal fat-suppressed T2- weighted images were obtained. Coronal T1-weighted images were obtained. Correlate with x-ray of May [id number]. Medial articular compartment findings: There is diminution of the width of the body meniscus with some truncation of the free edge of the body medial meniscus. This is suspect for sequelae to previous partial medial meniscectomy. Recommend correlating with previous operative intervention. If the patient has not had previous partial medial meniscectomy then this would be consistent with sequelae to previous tear of the body medial meniscus with displacement of the torn segment. There is no visible displaced intra-articular meniscal fragment demonstrated on the current exam. Mild mucoid degeneration within the posterior horn medial meniscus. There is high-grade chondrosis along the mid weightbearing surface of the medial tibial plateau and the kissing adjacent portion of the medial femoral condyle. There is focal denudation of the articular cartilage along the weightbearing surface of the medial tibial plateau in an area which measures 1.4 cm ML by 1.6 cm AP. There is a smaller focal area of denuded articular cartilage mid weightbearing surface of the medial femoral condyle in an area which measures estimated 9 mm in diameter. Greater than 50% thinning of the rest the articular cartilage weightbearing surfaces of the medial joint compartment. Lateral tibial compartment findings: Intact normal lateral meniscus. Mild low signal degenerative changes of portions of the weightbearing articular cartilage of the lateral femoral condyle. There is a narrow strip of likely basilar delamination of the articular cartilage along the posterior lateral nonweightbearing surface lateral femoral condyle demonstrated images 7/8 and 4/17. This area measures 1 cm in length by 5 mm in width. Greater than 50% irregular attenuation of the articular cartilage posterior nonweightbearing surface of the lateral femoral condyle. Patellofemoral articular compartment findings: Subtle lateral subluxation of patella. There is greater than 50% thinning of the articular cartilage overlying the superior two thirds of the lateral facet of the patella in the upper one half of the median ridge and of the patella. Focal deep fissure within the articular cartilage overlying the median ridge of patella on image 7/17. Greater than 50% thinning of the articular cartilage overlying the far inferior portion of the lateral trochlear groove. Ligament and tendon findings: Intact normal anterior cruciate ligament, posterior cruciate ligament, quadriceps tendon, medial collateral ligament, iliotibial band, lateral collateral ligament, biceps and wrist tendon, popliteus tendon and popliteal fibular ligament. There is mwxc-he-[id number] proximal patella tendinosis and mild distal patellar tendinosis. There is cmsp-kk-olorkbki distal semimembranosus tendinosis. Bone findings: Subtle lateral subluxation of patella. No osseous lesions. No bone marrow edema. Normal volume of joint fluid. Other findings: Soft tissues about the knee are unremarkable. Procedure Note Interface, [facility] Results - 06/25/2018 1:37 PM CDT MRI left knee without contrast. HISTORY: Left knee pain. Rule out lateral meniscal tear. TECHNIQUE: Coronal axial sagittal and oblique coronal fat-suppressed proton- density images were part left knee. Sagittal fat-suppressed T2-weighted images were obtained. Coronal T1-weighted images were obtained. Correlate with x-ray of May [id number]. Medial articular compartment findings: There is diminution of the width of the body meniscus with some truncation of the free edge of the body medial meniscus. This is suspect for sequelae to previous partial medial meniscectomy. Recommend correlating with previous operative intervention. If the patient has not had previous partial medial meniscectomy then this would be consistent with sequelae to previous tear of the body medial meniscus with displacement of the torn segment. There is no visible displaced intra-articular meniscal fragment demonstrated on the current exam. Mild mucoid degeneration within the posterior horn medial meniscus. There is high-grade chondrosis along the mid weightbearing surface of the medial tibial plateau and the kissing adjacent portion of the medial femoral condyle. There is focal denudation of the articular cartilage along the weightbearing surface of the medial tibial plateau in an area which measures 1.4 cm ML by 1.6 cm AP. There is a smaller focal area of denuded articular cartilage mid weightbearing surface of the medial femoral condyle in an area which measures estimated 9 mm in diameter. Greater than 50% thinning of the rest the articular cartilage weightbearing surfaces of the medial joint compartment. Lateral tibial compartment findings: Intact normal lateral meniscus. Mild low signal degenerative changes of portions of the weightbearing articular cartilage of the lateral femoral condyle. There is a narrow strip of likely basilar delamination of the articular cartilage along the posterior lateral nonweightbearing surface lateral femoral condyle demonstrated images 7/8 and 4/ 17. This area measures 1 cm in length by 5 mm in width. Greater than 50% irregular attenuation of the articular cartilage posterior nonweightbearing surface of the lateral femoral condyle. Patellofemoral articular compartment findings: Subtle lateral subluxation of patella. There is greater than 50% thinning of the articular cartilage overlying the superior two thirds of the lateral facet of the patella in the upper one half of the median ridge and of the patella. Focal deep fissure within the articular cartilage overlying the median ridge of patella on image 7/ 17. Greater than 50% thinning of the articular cartilage overlying the far inferior portion of the lateral trochlear groove. Ligament and tendon findings: Intact normal anterior cruciate ligament, posterior cruciate ligament, quadriceps tendon, medial collateral ligament, iliotibial band, lateral collateral ligament, biceps and wrist tendon, popliteus tendon and popliteal fibular ligament. There is qmhm-fp-[id number] proximal patella tendinosis and mild distal patellar tendinosis. There is mild- to-moderate distal semimembranosus tendinosis. Bone findings: Subtle lateral subluxation of patella. No osseous lesions. No bone marrow edema. Normal volume of joint fluid. Other findings: Soft tissues about the knee are unremarkable. IMPRESSION 1. Diminution of the body medial meniscus with truncation of the free edge. This is suspect for sequelae to previous partial medial meniscectomy. Recommend correlating with previous intervention history. In the absence of previous partial medial meniscectomy then this is consistent with sequelae to previous displaced tear of the body medial meniscus. There is no visible loose meniscal fragment within the joint space. 2. High-grade chondrosis of the central weightbearing surfaces of the medial femoral condyle and medial tibial plateau with areas of denuded articular cartilage as noted. 3. 1 cm long by 5 mm wide focus of likely basilar delamination of the articular cartilage along the posterior lateral nonweightbearing surface lateral femoral condyle. Greater than 50% thinning of the articular cartilage posterior nonweightbearing surface lateral femoral condyle. 4. Grade III chondromalacia of the patella. Full-thickness fissure in the articular cartilage overlying the median ridge of the patella. Greater than 50% thinning of the articular cartilage overlying the inferior portion of the lateral trochlear groove. Slight lateral subluxation of patella. 5. Nrih-ch-ddfxvfhm proximal patella tendinosis. Mild distal patella tendinosis. Kzcd-wv-mqfkltxm distal semimembranosus tendinosis. Finalized by Richy Alcala M.D. on 06/25/2018 1:34 PM. Dictated by Richy Alcala M.D. on 06/25/2018 1:14 PM. Performing Organization Address City/State/Zipcode Phone Number [facility] * KNEE 3 VIEWS LEFT (06/16/2018 3:39 PM) Impressions Performed At Minimal medial joint compartment narrowing of the left knee. Otherwise, joint [facility] spaces are preserved. No acute fracture or dislocation. Normal bone mineralization is present. No significant joint effusion. No radiopaque foreign body. Finalized by JULIETA CÁRDENAS on 06/16/2018 3:42 PM. Dictated by JULIETA CÁRDENAS on 06/16/2018 3:40 PM. Narrative Performed At KNEE 3 VIEWS LEFT [facility] Indication: Chronic left knee pain Comparison: Bilateral knee radiographs from 01/01/2018 Technique: 3 views Procedure Note Interface, [facility] Results - 06/16/2018 3:50 PM CDT KNEE 3 VIEWS LEFT Indication: Chronic left knee pain Comparison: Bilateral knee radiographs from 01/01/2018 Technique: 3 views IMPRESSION Minimal medial joint compartment narrowing of the left knee. Otherwise, joint spaces are preserved. No acute fracture or dislocation. Normal bone mineralization is present. No significant joint effusion. No radiopaque foreign body. Finalized by JULIETA CÁRDENAS on 06/16/2018 3:42 PM. Dictated by JULIETA CÁRDENAS on 06/16/2018 3:40 PM. Performing Organization Address City/State/Zipcode Phone Number [facility] from Last 3 Months
--- OUTSIDE RECORDS SUMMARY | 2018-08-05 08:38 | XMS REPORT | Encounter Summary ---
Author Author [facility] Organization [facility] Address Unknown Phone Unavailable Care Team Providers Care Instructional Materials Director Name Role Phone Navarro Cano LINEN ROOM HOUSEPERSON PCP Reason for Referral * Consult, Test & Treat (Routine) Status Reason Specialty Diagnoses / Referred By Referred To Procedures Contact Contact No Auth Needed Specialty Rheumatology Diagnoses Kaz Costello [facility] Services Kade Laird MD Rheumatology Cl Required tissue disease [address] [facility] ([facility]) [facility] M35.[address] [place] (ICD-10-CM) - [place], [place] Connective [id number] tissue disease Phone: Phone: ([facility])-h/o MCTD [phone] with Fax: +ISRRAEL, +INSTRUMENT MAKER [phone] * Consult, Test & Treat (Routine) Status Reason Specialty Diagnoses / Referred By Referred To Procedures Contact Contact Closed Specialty Diagnoses Kaz Costello Services Primary MD Eitan Required osteoarthritis [address] [place] [address] Reason for Visit * Reason Comments Pain * Consult, Test & Treat Status Reason Specialty Diagnoses / Referred By Referred To Procedures Contact Contact No Auth Needed Specialty Orthopedic Surgery Diagnoses Pravin Duvall John Services Left knee pain, Jacky, MELISSA Laird MD Required unspecified [address] [place] [address] chronicity vd [address] H/O arthroscopy [place], [place] of knee [address] Phone: Fax: Encounter Details Date Type Department Care Team Description 07/21/2018 Office Visit [facility] Kaz Costello MD Primary osteoarthritis of [place] [employer] [address] left knee (Primary Dx); Complex [address] Connective tissue disease [address] [place] [address] ([facility]) [place] [address] [phone] Social History Tobacco Use Types Packs/Day Years [...] Mass Index 39.53 07/21/2018 9:00 AM CDT in this encounter Functional Status Functional Status Response Date of Assessment Does the patient have a hearing impairment: No 07/21/2018 Does the patient have a visual impairment: No 07/21/2018 Does the patient have impaired ambulation: No 07/21/2018 Does the patient have an activity of daily living No 07/21/2018 (ADL) impairment: Does the patient have an instrumental activity of No 07/21/2018 daily living (IADL) impairment: Cognitive Status Response Date of Assessment Does the patient have a cognitive impairment: No 07/21/2018 as of this encounter Instructions * Patient Instructions - Layla Forrester RN - 07/21/2018 9:00 AM CDT MD Jacky Luz PA-C [facility] | | [address] [place] [address], [address] | [place], [place] [address] Layla Forrester RN | Clinical Nurse Coordinator Jacob Ferguson ATC | Clinical Food Preparation Supervisor in this encounter Progress Notes * Kaz Costello MD - 07/21/2018 9:00 AM CDT Formatting of this note may be different from the original. Date of Service: 07/21/2018 History of Present Illness Moon Koenig is a 37 y.o. female who presents with c/o left knee pain. She is referred by Jacky Duvall PA-C. She localizes the majority of her pain along the medial and lateral joint lines, with posterior knee soreness as well today. Her associated symptoms include a subjective instability. She denies mechanical symptoms, such as locking or catching. She states she had an injury approximately a month ago while walking on her crutches. She tripped and tried catching herself on the left knee. She felt as though her left knee twisted, and she began having increased pain and swelling. She initially hoped her knee pain would get better with just ice and lzhc-kzl-wgbhspb medications; however, her pain has persisted. She does have an extensive history of left knee surgery, which she describes as multiple meniscus surgeries (5). She has tried Viscosupplementation in the past, which she feels has provided mild improvement in her symptoms for approximately a month. Of note, she states she fractured her right foot approximately 11 weeks ago, and has been following with orthopedics in [place] for this. She presents to clinic to pursue further management options. Review of Systems Constitutional: Positive for fatigue. Cardiovascular: Positive for leg swelling. Musculoskeletal: Positive for arthralgias. Past Medical History: Diagnosis Date Asthma Bursitis Fibromyalgia Hypertension Palpitations Past Surgical History: Procedure Laterality Date HYSTERECTOMY 2002 HX CHOLECYSTECTOMY 2012 HX ARTHROSCOPIC SURGERY Left 09/27/2017 KNEE X5 KNEE SURGERY Left 09/27/2017 KNEE/ARTHROSCOPE ANKLE SURGERY Right Objective: albuterol (VENTOLIN HFA) 90 mcg/actuation inhaler Inhale 2 puffs by mouth into the lungs every 6 hours as needed for Wheezing or Shortness of Breath. Shake well before use. baclofen (LIORESAL) 10 mg tablet Take 10 mg by mouth three times daily. celecoxib (CELEBREX) 400 mg capsule Take 400 mg by mouth twice daily. cetirizine (ZYRTEC) 10 mg tablet Take 10 mg by mouth every morning. diclofenac(+) (VOLTAREN) 1 % topical gel Apply 4 g topically to affected area daily. fluticasone (FLONASE) 50 mcg/actuation nasal spray Apply to each nostril as directed daily. Shake bottle gently before using. fluticasone/salmeterol (ADVAIR DISKUS) 250/50 mcg inhalation disk Inhale 1 puff by mouth into the lungs every 12 hours. HYDROXYZINE HCL PO Take 50 mg by mouth twice daily. metoprolol XL (TOPROL XL) 25 mg extended release tablet Take 25 mg by mouth twice daily. omeprazole DR(+) (PRILOSEC) 20 mg capsule Take 20 mg by mouth daily before breakfast. other medication HYDROXYCYCLINE 200 MG BID oxycodone/acetaminophen (PERCOCET) 10/325 mg tablet Take by mouth twice daily. TIZANIDINE HCL (TIZANIDINE PO) Take by mouth three times daily. Vitals: 07/21/18 0900 BP: 123/67 Pulse: 73 Resp: 15 SpO2: 98% Weight: 117.9 kg (260 lb) Height: 172.7 cm (68") Body mass index is 39.53 kg/m. Social History Social History Marital status: Single Spouse name: N/A Number of children: N/A Years of education: N/A Occupational History Not on file. Social History Main Topics Smoking status: Never Smoker Smokeless tobacco: Never Used Alcohol use No Drug use: No Sexual activity: Not on file Other Topics Concern Not on file Social History Narrative No narrative on file Physical Exam Ortho Exam General Healthy appearing 37 y.o. female in no acute distress. Alert and oriented x 3. Mood and affect are appropriate today. Constitutional: She is oriented to person, place, and time. She appears well- developed and well-nourished. HENT: Head: Normocephalic and atraumatic. Eyes: Conjunctivae and EOM are normal. Cardiovascular: Normal rate and intact distal pulses. Pulmonary/Chest: Effort normal. No respiratory distress. Neurological: She is alert and oriented to person, place, and time. Skin: Skin is warm and dry. Psychiatric: She has a normal mood and affect. Her behavior is normal. Judgment and thought content normal. Nursing note and vitals reviewed. Knee Exam: Left knee was evaluated. Skin intact. ROM 0-140 degrees, with aggravation of posterior knee pain. No effusion. Stable to varus/valgus stress at 0 and 30 degrees. Positive lateral jt line tenderness. Positive medial jt line tenderness. Negative medial and lateral Uri test. Negative laurie. Negative anterior drawer. Negative posterior drawer. Negative patellar apprehension test. Mild retropatellar crepitus noted. Quad MS 5/5. Neurovascularly intact. Comments: Well-healed incisions. Neutral coronal plane alignment. Negative pivot shift. Normal patellar tracking. Positive grind test. Patellar and quadriceps tendons are intact and non-tender. 1 quadrant of lateral patellar excursion, with a firm end point. Imaging: Orthogonal radiographs of her left knee were obtained and reviewed. They were negative for acute osseous abnormality or fracture. Minimal medial joint compartment narrowing of the left knee. Otherwise, joint spaces are preserved. No acute fracture or dislocation. Normal bone mineralization is present. No significant joint effusion. No radiopaque foreign body. An MRI of her left knee was reviewed. IMPRESSION: 1. Diminution of the body medial meniscus [...] groove. Slight lateral subluxation of patella. 5. Ezng-fx-wyycbphn proximal patella tendinosis. Mild distal patella tendinosis. Plsx-ce-kzyidhxv distal semimembranosus tendinosis. Finalized by Richy Alcala M.D. on 06/25/2018 1:34 PM. Assessment and Plan: 37 y.o.female with 1. Left knee degenerative joint disease 2. Prior medial and lateral menisectomies I discussed the patients history, physical exam, and imaging findings today. Spent the majority of our 25 minute encounter today discussing clinical exam and imaging, as well as all possible treatment options. We also discussed treatment options including operative and non-operative management. After our discussion, I recommended treating her symptoms conservatively with a formal course of PT to establish a consistent HEP, with a particular focus on ROM and strengthening exercises, and she will be provided with a script for this today, in conjunction with maintaining a consistent low impact exercise program, such as aquatic therapy. We discussed at length the importance of weight reduction and its positive impacts on symptomatic DJD of the knee, as well as her health in general. If her pain persists and/or worsens, despite conservative management, she will RTC to discuss further treatment options. We discussed the options and benefits of Viscosupplementation and PRP injections in the future. She does not require a scheduled followup with us, but certainly can return at any point in the future as her symptoms dictate. All of her questions were answered to her satisfaction. She voiced clear understanding of this treatment plan and agreed. -Referral to rheumatology for further consultation and evaluation for mixed connective tissue disease and steroid management. Any opportunity to utilize non-steroidal medical management will have a positive impact on her weight, bone health, and knee pain and function. ATTESTATION I have taken down these notes in the presence of Dr. Kaz Costello. Staff name: Valerie Mata Date: 07/21/2018 in this encounter Plan of Treatment Name Priority Associated Diagnoses Order Schedule AMB REFERRAL TO PHYSICAL THERAPY Routine Primary osteoarthritis of Ordered: 07/21/2018 left knee AMB REFERRAL TO RHEUMATOLOGY Routine Connective tissue disease Ordered: 07/21/2018 ([facility]) as of this encounter Visit Diagnoses Diagnosis Primary osteoarthritis of left knee - Primary Primary localized osteoarthrosis, lower leg Connective tissue disease (HCC) Unspecified diffuse connective tissue disease
--- OUTSIDE RECORDS SUMMARY | 2018-08-05 08:39 | XMS REPORT | Encounter Summary ---
Author Author [facility] Organization [facility] Address Unknown Phone Unavailable Care Team Providers Care Drying Machine Back Tender Name Role Phone Navarro Cano RELIGIOUS RITUAL SLAUGHTERER PCP Reason for Referral * Radiology Services Status Reason Specialty Diagnoses / Referred By Referred To Procedures Contact Contact Authorized Radiology Diagnoses Claricearin, Ic1 Mri Chronic pain of Jacky, PA-C [address] left knee [address] [place], [place] Other tear [place], [place] Phone: [place] [address] current injury, Phone: subsequent [phone] encounter Fax: P [phone] rocedures MRI LOWER EXT JNT WO CONT LEFT * Radiology Services Status Reason Specialty Diagnoses / Referred By Referred To Procedures Contact Contact Authorized Radiology Diagnoses Jadiel Ic1 Mri Chronic pain of Jacky, PA-C [address] left knee [address] [place], [place] Other tear [place], [place] Phone: [place] [address] current injury, Phone: subsequent [phone] encounter Fax: P [phone] rocedures MRI LOWER EXT JNT WO CONT LEFT Reason for Visit * Radiology Services Status Reason Specialty Diagnoses / Referred By Referred To Procedures Contact Contact Authorized Radiology Diagnoses Jadiel Ic1 Mri Chronic pain of Jacky, PA-C [address] left knee [address] [place], [place] Other tear of [address], [place] Phone: [place] [address] current injury, Phone: subsequent [phone] encounter Fax: P [phone] rocedures MRI LOWER EXT JNT WO CONT LEFT Encounter Details Date Type Department Care Team Description 06/25/2018 Hospital [facility] Jacky Duvall PA-C Encounter [facility] [address] [address] [place] [address] [place] [address] [phone] Social History Tobacco Use Types Packs/Day Years Used Date Never Smoker Smokeless Tobacco: Never Used Alcohol Use Drinks/Week oz/Week Comments No Sex Assigned at Date Recorded Not on file as of this encounter Functional Status Functional Status Response Date of Assessment Does the patient have a hearing impairment: No 06/16/2018 Does the patient have a visual impairment: No 06/16/2018 Does the patient have impaired ambulation: Yes 06/16/2018 Does the patient have an activity of daily living No 06/16/2018 (ADL) impairment: Does the patient have an instrumental activity of No 06/16/2018 daily living (IADL) impairment: Cognitive Status Response Date of Assessment Does the patient have a cognitive impairment: No 06/16/2018 as of this encounter Medications at Time [...] 200 MG BID oxycodone/acetaminophen Take by mouth twice (PERCOCET) 10/325 mg daily. tablet TIZANIDINE HCL Take by mouth three (TIZANIDINE PO) times daily. as of this encounter Plan of Treatment Not on fileas of this encounter Results * MRI LOWER EXT JNT WO [...] trochlear groove. Slight lateral subluxation of patella. 5.Nxjl-oz-nbsptlpc proximal patella tendinosis. Mild distal patella tendinosis. Twye-wk-pehmchds distal semimembranosus tendinosis. Finalized by Richy Alcala [...] tendon and popliteal fibular ligament. There is bgjj-wf-akjoguis proximal patella tendinosis and mild distal patellar tendinosis. There is mrdw-ol-tlpwtcee distal semimembranosus tendinosis. Bone findings: Subtle lateral [...] lateral femoral condyle demonstrated images 7/8 and . This area measures 1 cm in length [...] tendon and popliteal fibular ligament. There is hnuo-lp-evhspgvj proximal patella tendinosis and mild distal patellar [...] groove. Slight lateral subluxation of patella. 5. Dswn-zl-npmibkuy proximal patella tendinosis. Mild distal patella tendinosis. Fudm-fw-qyphpglp distal semimembranosus tendinosis. Finalized by Richy Alcala M.D. on 06/25/2018 1:34 PM. Dictated by Richy Alcala M.D. on 06/25/2018 1:14 PM. Performing Organization Address City/State/Zipcode Phone Number [facility] RESULTS in this encounter Visit Diagnoses Diagnosis Chronic pain of left knee Pain in joint, lower leg Other tear of lateral meniscus of left knee as current injury, 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
--- OUTSIDE RECORDS SUMMARY | 2018-08-05 08:39 | XMS REPORT | Encounter Summary ---
Author Author [facility] Organization [facility] Address Unknown Phone Unavailable Care Team Providers Care Critical Care Technician Name Role Phone Navarro Cano CONDUIT MECHANIC PCP Reason for Referral * Consult, Test & Treat Status Reason Specialty Diagnoses / Referred By Referred To Procedures Contact Contact No Auth Needed Specialty Orthopedic Surgery Diagnoses Pravin Duvall John Services Left knee pain, MELISSA Rico MD Required unspecified [address] [place] [address] H/O arthroscopy [place], [place] of knee [address] Phone: Fax: Encounter Details Date Type Department Care Team Description 06/30/2018 Orders Only [facility] Jacky Duvall PA-C Left knee pain, Medicine [address] unspecified chronicity [place] [address] (Primary Dx); [address] H/O arthroscopy of knee [address] [place] [address] Social History Tobacco Use Types Packs/Day Years [...] impairment: No 06/16/2018 as of this encounter Plan of Treatment Name Priority Associated Diagnoses Order Schedule AMB REFERRAL TO ORTHOPEDICS Routine Left knee pain, Ordered: 06/30/2018 unspecified chronicity H/O arthroscopy of knee as of this encounter Visit Diagnoses Diagnosis Left knee pain, unspecified chronicity - Primary H/O arthroscopy of knee Other postprocedural status
--- OUTSIDE RECORDS SUMMARY | 2018-08-05 08:39 | XMS REPORT | Encounter Summary ---
Author Author [facility] Organization [facility] Address Unknown Phone Unavailable Care Team Providers Care Manager Data Center Name Role Phone Navarro Cano AUTO SERVICE ADVISOR PCP Encounter Details Date Type Department Care Team Description 06/16/2018 Procedure Pass [facility] [address] [place] [address] Social History Tobacco Use Types Packs/Day Years [...] Treatment Not on fileas of this encounter Visit Diagnoses Not on filein this encounter
--- OUTSIDE RECORDS SUMMARY | 2018-08-05 08:39 | XMS REPORT | Encounter Summary ---
Author Author [facility] Organization [facility] Address Unknown Phone Unavailable Care Team Providers Care Apprenticeship Training Representative Name Role Phone Navarro Cano SHIFT MECHANIC PCP Reason for Referral * Radiology Services Status Reason Specialty Diagnoses / Referred By Referred To Procedures Contact Contact Authorized Radiology Diagnoses Jadiel, Ic1 Mri Chronic pain of [place] [address] left knee [address] [place], [place] Other [place] [address] lateral meniscus [place], [place] Phone: [place] [address] current injury, Phone: subsequent [phone] encounter Fax: P [phone] rocedures MRI LOWER EXT JNT WO CONT LEFT Reason for Visit * Reason Comments Follow Up Encounter Details Date Type Department Care Team Description 06/16/2018 Office Visit [facility] Jacky Duvall, MELISSA Chronic pain of left knee Medicine [address] (Primary Dx); [place] [address] Other tear of lateral 200 [place] [address] current injury, [place] [address] 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 [phone] Social History Tobacco Use Types Packs/Day Years Used Date Never Smoker Smokeless Tobacco: Never Used Alcohol Use Drinks/Week oz/Week Comments No Sex Assigned at Date Recorded Not on file as of this encounter Last Filed Vital Signs Vital Sign Reading Time Taken Blood Pressure 118/72 06/16/2018 2:56 PM CDT Pulse 68 06/16/2018 2:56 PM CDT Temperature - - Respiratory Rate 16 06/16/2018 2:56 PM CDT Oxygen Saturation 97% 06/16/2018 2:56 PM CDT Inhaled Oxygen - - Concentration Weight 117.5 kg (259 lb) 06/16/2018 2:56 PM CDT Height 172.7 cm (5' 8") 06/16/2018 2:56 PM CDT Body Mass Index 39.38 06/16/2018 2:56 PM CDT in this encounter Functional Status Functional [...] impairment: No 06/16/2018 as of this encounter Progress Notes * Jacky Duvall PA-C - 06/16/2018 3:20 PM CDT Formatting of this note may be different from the original. Subjective: 37-year-old female with chief complaint of left knee pain. She locates the majority of her knee pain on the lateral aspect of her joint line. Associated symptoms include a sense of instability. She denies locking or catching. Patient states she had an injury roughly 1 week ago while walking on her crutches. She tripped and tried catching herself on the left knee. She felt as though her left knee twisted and she began having increased pain and swelling. She initially hoped her knee pain would get better with just ice and luto-stp-zophxei medications; however, pain has persisted. Patient does have an extensive history of left knee surgery and what she describes as multiple meniscus surgeries. Her pain is usually on the medial side of her left knee. This lateral knee pain is new. Patient states she fractured her right foot 6 weeks ago and has been following with orthopedics in [place] for this. Objective: General: Alert and oriented. No acute distress. Unaccompanied. Crutches. Pulmonary: Non-labored respirations. Normal effort. C/V: Calves soft and non-tender. DP pulse present Psych: Normal mood and affect. Normal judgement. Musculoskeletal (left knee): No erythema, ecchymosis, deformity, rash, swelling , or significant effusion. Arthroscopy surgery scars. Moderate to severe tenderness to palpation lateral joint line. Mild tenderness medial joint line. Mild tenderness lateral patellar retinaculum. AROM 0 to 120 and painful at terminal extension. Quad strength appropriate. Knee stable to V/V stress at 0 and 30 degrees. Pain with varus stress. Negative anterior and posterior drawer. Negative Cathy. Positive lateral Uri for pain. Negative patellar apprehension. Calves soft and non-tender. DP pulse present. Imaging: IMPRESSION (radiologist) Minimal medial joint compartment narrowing of the left knee. Otherwise, joint spaces are preserved. No acute fracture or dislocation. Normal bone mineralization is present. No significant joint effusion. No radiopaque foreign body. Assessment: 1) left knee pain, rule out lateral meniscus tear 2) left knee osteoarthritis, medial compartment Plan: 37-year-old female with signs and symptoms consistent with lateral meniscal pathology. Treatment options presented to include obtaining an MRI for further evaluation and the patient agreed. I will call her to discuss the results once they are available. Will base further treatment options upon the results of the MRI. RICE protocol. All questions concerns addressed. I have personally reviewed the patient intake form with the patient today, it was signed by me and scanned into O2. Please see below for details. Review Of Symptoms: A 14-point review of systems was performed and was positive as below and otherwise negative: Review of Systems Constitutional: Positive for activity change. Negative for fever. Musculoskeletal: Positive for arthralgias, gait problem and joint swelling. Skin: Negative for wound. Neurological: Negative for weakness and numbness. Allergies: Amoxicillin and Pcn [penicillins] Current Medications: albuterol (VENTOLIN HFA) 90 mcg/actuation inhaler Inhale [...] (PERCOCET) 10/325 mg tablet Take by mouth every 6 hours as needed. TIZANIDINE HCL (TIZANIDINE PO) Take by mouth three times daily. Past Medical History: Past Medical History: Diagnosis Date Asthma Bursitis Fibromyalgia Hypertension Palpitations Past Surgical History: Past Surgical History: Procedure Laterality Date HYSTERECTOMY 2002 HX CHOLECYSTECTOMY 2011 HX ARTHROSCOPIC SURGERY Left 09/27/2017 KNEE X5 KNEE SURGERY Left 09/27/2017 KNEE/ARTHROSCOPE ANKLE SURGERY Right Social History: History Smoking Status Never Smoker Smokeless Tobacco Never Used History Drug Use No History Alcohol Use No Family History: Family History Problem Relation Age of Onset Diabetes Mother Hypertension Mother Asthma Mother Hypertension Father Asthma Father Stroke Father Vitals: Vitals: 06/16/18 1456 BP: 118/72 Pulse: 68 Resp: 16 SpO2: 97% Weight: 117.5 kg (259 lb) Height: 172.7 cm (68") Body mass index is 39.38 kg/m. in this encounter Plan of Treatment Not [...] trochlear groove. Slight lateral subluxation of patella. 5.Yyvs-ei-yoabmhrg proximal patella tendinosis. Mild distal patella tendinosis. Xalh-qx-nmfkvbgu distal semimembranosus tendinosis. Finalized by Richy Alcala [...] tendon and popliteal fibular ligament. There is okne-ks-dutuyfzr proximal patella tendinosis and mild distal patellar tendinosis. There is oakl-jj-vifufklh distal semimembranosus tendinosis. Bone findings: Subtle lateral [...] tendon and popliteal fibular ligament. There is ldey-yk-preentul proximal patella tendinosis and mild distal patellar [...] groove. Slight lateral subluxation of patella. 5. Rirk-mi-achrrvly proximal patella tendinosis. Mild distal patella tendinosis. Mssr-jq-vgxxxjge distal semimembranosus tendinosis. Finalized by Richy Alcala M.D. on 06/25/2018 1:34 PM. Dictated by Richy Alcala M.D. on 06/25/2018 1:14 PM. Performing Organization Address [facility] Phone Number [facility] RESULTS * KNEE [...] Diagnoses Diagnosis Chronic pain of left knee - Primary Pain in joint, lower leg Other tear of lateral meniscus of left knee as current injury, 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
--- OUTSIDE RECORDS SUMMARY | 2018-08-05 08:39 | XMS REPORT | Encounter Summary ---
Author Author [facility] Organization [facility] Address Unknown Phone Unavailable Care Team Providers Care Truck Striker Name Role Phone Navarro Cano STREET SWEEPER OPERATOR PCP Encounter Details Date Type Department Care Team Description 06/16/2018 [facility] Jacky Duvall PA-C Encounter [place] [facility] [address] [address] [place] [address] [place] [address] [phone] Social History Tobacco Use Types Packs/Day Years [...] fileas of this encounter Results * KNEE 3 VIEWS LEFT (06/16/2018 3:39 [...]
--- OUTSIDE RECORDS SUMMARY | 2018-08-05 08:39 | XMS REPORT | Encounter Summary ---
Author Author [facility] Organization [facility] Address Unknown Phone Unavailable Care Team Providers Care Web Site Admin Name Role Phone Navarro Cano PROPELLER INSPECTOR PCP Reason for Visit * Reason Comments Results Encounter Details Date Type Department Care Team Description 06/30/2018 Telephone [facility] Jacky Duvall PA-C Results Medicine [address] [facility] [place] [address] 200 [phone] [place], [place] [address] Social History Tobacco Use Types Packs/Day Years [...] impairment: No 06/16/2018 as of this encounter Miscellaneous Notes * Telephone Encounter - Jacky Duvall PA-C - 06/30/2018 10:06 AM CDT Discussed knee MRI results. Treatment options discussed to include continued conservative management and/or referral to discuss possible surgical options. She would like to see a sports med surgeon to see if she has any options. Will place a referral. In the meantime, she was advised to acquire her old operative notes from her prior knee scopes All questions and concerns addressed. in this encounter Plan of Treatment Not on fileas of this encounter Visit Diagnoses Not on filein this encounter
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
--- NOTE | 2018-08-05 10:02 | Cardiac Procedure Note-CS/ASA ---
Pre-Procedure Note Pre-Op Procedure Note H&P Reviewed The H&P was reviewed, patient examined and no changes noted. Date H&P Reviewed: Aug 05, 2018 Time H&P Reviewed: 10: Conscious Sedation Pre-Proced Time Reviewed: 10: ASA Class: 3 Airway Mallampati Classification: (creek appropriate class) I. II. III, IV Lungs Heart ASA score ASA 1: a normal healthy patient ASA 2: a patient with a mild systemic disease (mid diabetes, controlled hypertension, obesity ASA 3: a patient with a severe systemic disease that limits activity (angina , COPD, prior Myocardial infarction) ASA 4: a patient with an incapacitating disease that is a constant threat to life (CHF, renal failure) ASA 5: a moribund patient not expected to survive 24 hrs. (ruptured aneurysm) ASA 6: a declared brain patient whose organs are being harvested. For emergent operations, add the letter E after the classification Grade 2 Sedation Plan: Analgesia, Amnesia, Plan communicated to team members, Discussed options with patient/fam, Discussed risks with patient/fam Note The patient is an appropriate candidate to undergo the planned procedure, sedation, and anesthesia. The patient immediately re-assessed prior to indication. LEANN MARIA MD FACP FAC CCDS Aug 05, 2018 10:02
--- NOTE | 2018-08-05 14:09 | OPERATIVE REPORT ---
DATE OF SERVICE: 08/05/2018 PREOPERATIVE DIAGNOSIS: Palpitations. POSTOPERATIVE DIAGNOSIS: Palpitations. PROCEDURE: Implantable loop recorder implantation. INDICATIONS: The patient is a 37-year-old lady who has been experiencing palpitations and a short-term pvc monitor has not indicated an etiology. She continues to be bothered considerably with the symptoms. Implantable loop recorder implantation was carried out today after having obtained an informed consent. [facility] The left prepectoral area was prepared and draped in the usual sterile fashion. Lidocaine 1% was used for local anesthesia. The tools provided with Simple Car Wash Reveal LINQ device were used to make a pocket anterior to the fourth intercostal space on the left side in which the device was placed without difficulty and the skin edges were closed using Dermabond and Steri-Strips. She tolerated the procedure well. Job ID: [id number] DocumentID: [id number] Dictated Date: 08/05/2018 10:12:06 Machine Builder Date: 08/05/2018 14:08:23 Dictated By: LEANN MARIA MD, MA, FACP, FACC, MTDD
== END | disposition home or self-care (01) ==
LOC: CATH 08:10
PROVIDERS: ATTEND Internal Medicine Cardiovascular Disease
DX: R00.2 Palpitations (principal); I10 Essential (primary) hypertension; E78.5 Hyperlipidemia, unspecified; M79.7 Fibromyalgia; M35.1 Other overlap syndromes; K21.9 Gastro-esophageal reflux disease without esophagitis; E66.01 Morbid (severe) obesity due to excess calories; Z68.41 Body mass index [BMI] 40.0-44.9, adult; Z79.899 Other long term (current) drug therapy
CPT/HCPCS: 33282